=== PATIENT | female | born 1995 | race Caucasian/White ===

== ENCOUNTER 2019-09-12 00:08 | Emergency (ER) | payer BC ==
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
[2019-09-12 01:12] LABS: Alcohol 226 mg/dL (<10)
[2019-09-12 01:13] LABS: HCG Pregnancy < 0.60 mIU/mL
[2019-09-12] MEDS ORDERED: Acetaminophen TAB* 325 MG PO ONE (06:11)
[2019-09-12] MEDS ORDERED: Ondansetron ODT TAB* 4 MG SL ONE (06:11)
[2019-09-12 06:22] VITALS: BP 101/83
== END 2019-09-12 07:10 | disposition home or self-care (01) ==
LOC: ED 00:08
DX: F10.929 Alcohol use, unspecified with intoxication, unspecified (principal)
CPT/HCPCS: 36415; 80320; 84702; 99282; A9270-GY; G0480